=== PATIENT | female | born 1975 | race Hispanic/Latino ===

== ENCOUNTER 2018-09-16 08:48 | Outpatient (CLI) | payer OTHER ==
--- NOTE | 2018-09-16 10:13 | ULT ---
LIMITED LEFT BREAST ULTRASOUND: 09/16/2018 PROVIDED CLINICAL HISTORY: Left breast palpable abnormality. FINDINGS: Limited sonographic interrogation was performed of the left breast, in the region of palpable concern . There are two separate areas of circumscribed altered echogenicity present at the 11 o'clock posit ion of the left breast, in the region of palpable concern. These both demonstrate features suggestiv e of an aggregation of adjacent cysts. At 9 cm from the nipple, one of these areas measures about 1. 4 cm. At 7 cm from the nipple, the other area measures about 1.6 cm. IMPRESSION: BI-RADS category 3-Probably benign findings. Six-month follow-up left breast ultrasound is recommend ed. Findings and recommendations discussed with the patient, who voiced understanding. POS: OFF
--- NOTE | 2018-09-22 13:21 | MMO ---
Bilateral MAMMO Bilat Diag [facility]. CLINICAL HISTORY: Patient is 43 years old and is seen for diagnostic exam,palpable abnormality and pain in the left breast. The patient has no family history of breast cancer. The patient has no personal history of cancer. VIEWS: The views performed were: bilateral craniocaudal with tomosynthesis; bilateral mediolateral oblique with tomosynthesis; and bilateral mediolateral. FILMS COMPARED: The present examination has been compared to a prior imaging study performed at [facility] on 09/16/2018. MAMMOGRAM FINDINGS: The breasts are extremely dense, which may lower the sensitivity of mammography. Finding 1: There are benign appearing calcifications seen in both breasts. Finding 2: No mammographic abnormality is evident in the region of palpable concern. Sonography of this region demonstrates probably benign findings, please see that report. IMPRESSION: FINDING 2: FINDING IN THE LEFT BREAST IS PROBABLY BENIGN. FOLLOW-UP IN 6 MONTHS IS RECOMMENDED. THE RESULTS OF THIS EXAM WERE SENT TO THE PATIENT. ACR BI-RADS Category 3 - Probably benign finding - short interval follow-up suggested. [facility] will notify the patient of the need for additional imaging services. MAMMOGRAPHY NOTE: 1. A negative mammogram report should not delay a biopsy if a dominant of clinically suspicious mass is present. 2. Approximately 10% to 15% of breast cancers are not detected by mammography. 3. Adenosis and dense breasts may obscure an underlying neoplasm.
== END 2018-09-16 08:49 | disposition home or self-care (01) ==
LOC: BICMAMMO 08:48
PROVIDERS: ATTEND Family Medicine
DX: N63.0 Unspecified lump in unspecified breast (principal)
CPT/HCPCS: 77066; G0279

== ENCOUNTER 2019-03-17 12:58 | Outpatient (CLI) | payer OTHER ==
--- NOTE | 2019-03-17 14:28 | MMO ---
Left Breast MAMMO Unilat Diag [facility] LT+[facility]IE. CLINICAL HISTORY: Patient is 44 years old and is seen for diagnostic exam. The patient has no family history of breast cancer. The patient has no personal history of cancer. VIEWS: The views performed were: left craniocaudal with tomosynthesis; left mediolateral oblique with tomosynthesis; and left mediolateral with tomosynthesis. FILMS COMPARED: The present examination has been compared to prior imaging studies performed at [facility] on 09/16/2018 and 03/17/2019. This study has been interpreted with the assistance of computer-aided detection. MAMMOGRAM FINDINGS: The breast is extremely dense, which may lower the sensitivity of mammography. There are benign appearing calcifications seen in the left breast. IMPRESSION: AMMOGRAM FINDINGS REMAIN NEGATIVE. ULTRASOUND REVEALS CYSTIC CLUSTER 11 OCLOCK. 6 MONTH FOLLOW UP ULTRASOUND WITH BILATERAL MAMMOGRAM RECOMMENDED. 3BTHE RESULTS OF THIS EXAM WERE SENT TO THE PATIENT.0B ACR BI-RADS Category 3 - Probably benign finding - short interval follow-up suggested. [facility] will notify the patient of the need for additional imaging services. MAMMOGRAPHY NOTE: 1. A negative mammogram report should not delay a biopsy if a dominant of clinically suspicious mass is present. 2. Approximately 10% to 15% of breast cancers are not detected by mammography. 3. Adenosis and dense breasts may obscure an underlying neoplasm. Reported by: TERRY WATSON MD Electonically Signed: [id number]
--- NOTE | 2019-03-17 14:58 | ULT ---
ULTRASOUND LEFT BREAST: INDICATIONS: Ultrasound left breast performed to follow up two cyst clusters seen in the left breast, at 11 o'cloc k. COMPARISON; 09/16/2018 FINDINGS: The first cluster of tiny cysts at 11 o'clock is described at 9 cm from the nipple. This small clust er is slightly smaller in dimension when compared to the prior exam, measuring approximately 1.3 x 0. 8 x 0.3 cm today. Previous measurements were 1.4 x 0.7 x 1.1 cm. The second cyst cluster is at 11 o'clock and is described as 7 cm from the nipple. It appears stable in appearance from the prior exam and demonstrates several small clustered cystic lesions, which hav e an overall benign appearance. IMPRESSION: 1. Stable ultrasound findings. Recommend continued six month followup with repeat ultrasound examin ation in six months, which will be time for the patient's bilateral mammogram study. 2. BI-RADS 3-Probably benign. Continued six month followup recommended. POS: OFF
== END 2019-03-17 12:59 | disposition home or self-care (01) ==
LOC: BICULT 12:58
PROVIDERS: ATTEND Family Medicine
DX: N63.22 Unspecified lump in the left breast, upper inner quadrant (principal)
CPT/HCPCS: G0279